=== PATIENT | female | born 1950 | race Caucasian/White ===

== ENCOUNTER 2018-03-05 18:29 | Inpatient (IN) | payer MEDICARE ==
--- NOTE | 2018-03-05 18:54 | ER Document Report ---
ED General <GUS TOUSSAINT - Last Filed: 03/05/18 21:56> - General Mode of Arrival: Medic Information source: Patient <ROBERT ARELLANO - Last Filed: 03/09/18 22:11> - General Stated Complaint: BLOOD PRESSURE ISSUES Time Seen by Provider: 03/05/18 18:42 Notes: Patient is a 67-year-old female with a history of hypertension, COPD, hyperlipidemia, dementia, stroke (2014), vascular dementia and stage IV renal disease presents to the emergency department accompanied by daughter complaining of altered mental status. Daughter at bedside states that when she spoke to the patient around 1700 today the patient was not making coherent sentences, further stating the patient appeared confused. She states the EMS arrived around 1800 the patient vomited and was still incoherent. Daughter also mentions the patient being diaphoretic. At bedside, daughter states the patient has returned to her normal mental status. Patient states that she believes she has had 2 syncopal episodes today and also complains of right elbow pain and right flank pain, stating her "right kidney hurts with coughing and movement." (ROBERT ARELLANO) - Related Data Allergies/Adverse Reactions: strawberry Allergy (Intermediate, Verified 03/06/18 22:23) Hives Penicillins Allergy (Verified 03/05/18 19:32) Past Medical History - General Information source: Patient, Relative - Social History Smoking Status: Current Every Day Smoker Cigarette use (# per day): No Chew tobacco use (# tins/day): No Smoking Education Provided: No Frequency of alcohol use: Former excessive drinker, quit in June 2017. Family History: Reviewed & Not Pertinent - Past Medical History Cardiac Medical History: Reports: Hx Hypertension, Other - Hyperlipidemia Pulmonary Medical History: Reports: Hx COPD Renal/ Medical History: Reports: Other - Stage IV renal disease Past Surgical History: Reports: Hx Tubal Ligation <ROBERT ARELLANO - Last Filed: 03/09/18 22:11> Review of Systems - Review of Systems Constitutional: See HPI, Diaphoresis EENT: No symptoms reported Cardiovascular: See HPI, Syncope Respiratory: No symptoms reported Gastrointestinal: See HPI, Vomiting Genitourinary: See HPI, Flank pain - right Female Genitourinary: No symptoms reported Musculoskeletal: No symptoms reported Skin: No symptoms reported Hematologic/Lymphatic: No symptoms reported Neurological/Psychological: See HPI, Confusion -: Yes All other systems reviewed and negative <ROBERT ARELLANO - Last Filed: 03/09/18 22:11> Physical Exam <GUS TOUSSAINT - Last Filed: 03/05/18 21:56> <ROBERT ARELLANO - Last Filed: 03/09/18 22:11> - Vital signs Vitals: Temp Resp Pulse Ox 98.6 F 18 98 03/05/18 18:38 03/05/18 18:38 03/05/18 18:38 - Notes Notes: GENERAL: Alert, interacts well. No acute distress. HEAD: Normocephalic, atraumatic. EYES: Pupils equal, round, and reactive to light. Extraocular movements intact. ENT: Oral mucosa moist, tongue midline. NECK: Full range of motion. Supple. Trachea midline. LUNGS: Clear to auscultation bilaterally, no wheezes, rales, or rhonchi. No respiratory distress. HEART: Regular rate and rhythm. No murmurs, gallops, or rubs. ABDOMEN: Soft, non-tender. Non-distended. Bowel sounds present in all 4 quadrants. EXTREMITIES: Moves all 4 extremities spontaneously. No edema, radial and dorsalis pedis pulses 2/4 bilaterally. No cyanosis. NEUROLOGICAL: Somewhat demented which is baseline. Normal speech. PSYCH: Normal affect, normal mood. SKIN: Warm, dry, normal turgor. 2 small bruises on the dorsal aspect of the right wrist, appears old. BACK: Right lumbar muscles tender to palpation. Nontender to palpation to the paraspinal muscles. (EILEENROBERT GUSMAN) Course - Laboratory Result Diagrams: 03/05/18 18:49 03/05/18 18:49 - Diagnostic Test Radiology reviewed: Image reviewed, Reports reviewed - Lungs are hyperexpanded with flattening of the diaphragms. There are chronic lung changes with nothing acute. - EKG Interpretation by In EKG shows normal: Sinus rhythm, Hellier, Intervals, QRS Complexes, ST-T Waves Rate: Normal - 65 Rhythm: NSR Voltage: Consistant with LVH When compared to previous EKG there are: Previous EKG unavailable <GUS TOUSSAINT - Last Filed: 03/05/18 21:56> - Laboratory Result Diagrams: 03/08/18 04:01 03/08/18 04:01 <ROBERT ARELLANO - Last Filed: 03/09/18 22:11> - Re-evaluation Re-evalutation: 03/05/18 21:22 Patient's temperature went up to 101.9 orally. (GUS TOUSSAINT) - Vital Signs Vital signs: Temp Pulse Resp BP Pulse Ox 98.9 F 77 16 148/78 H 95 03/08/18 11:00 03/08/18 08:42 03/08/18 08:42 03/08/18 09:00 03/08/18 09:01 - Laboratory Laboratory results interpreted by me: 03/05/18 03/05/18 03/05/18 18:49 18:49 20:27 RBC 3.47 L Hgb 10.7 L Hct 32.7 L Seg Neutrophils % 81.6 H Lymphocytes % 8.4 L BUN 30 H Creatinine 1.83 H Est GFR ( Amer) 33 L Est GFR (Non-Af Amer) 27 L Urine Protein 100 H Urine Ketones TRACE H Urine Blood SMALL H Ur Leukocyte Esterase LARGE H Discharge - Discharge Admitting Provider: Hospitalist Unit Admitted: Telemetry <GUS TOUSSAINT - Last Filed: 03/05/18 21:56> <ROBERT ARELLANO - Last Filed: 03/09/18 22:11> - Discharge Clinical Impression: Febrile illness, acute, Confusion Urinary tract infection Qualifiers: Urinary tract infection type: site unspecified Hematuria presence: without hematuria Qualified Code(s): N39.0 - Urinary tract infection, site not specified COPD (chronic obstructive pulmonary disease) Qualifiers: COPD type: unspecified COPD Qualified Code(s): J44.9 - Chronic obstructive pulmonary disease, unspecified Condition: Stable Disposition: ADMITTED INPATIENT Scribe Attestation: 03/05/18 19:58 I personally performed the services described in the documentation, reviewed and edited the documentation which was dictated to the scribe in my presence, and it accurately records my words and actions. (GUS TOUSSAINT)
[2018-03-05] MEDS ORDERED: NORMAL SALINE 1000 ML 1,000 ML IV ONE ×2 (18:55→18:56)
[2018-03-05 19:02] LABS: ABSOLUTE LYMPHOCYTES (AUTO) 0.8 10^3/uL (0.5-4.7); ABSOLUTE MONOCYTES (AUTO) 0.9 10^3/uL (0.1-1.4); ABSOLUTE NEUT (AUTO) 7.8 10^3/uL (1.7-8.2); BASOPHILS % (AUTO) 0.3 % (0-2); EOSINOPHILS % (AUTO) 0.5 % (0-6); HEMATOCRIT 32.7 % (36.0-47.0); HEMOGLOBIN 10.7 g/dL (12.0-15.5); LYMPHOCYTES % (AUTO) 8.4 % (13-45); MEAN CORPUSCULAR HGB CONC 32.8 g/dL (32.0-36.0); MEAN CORPUSCULAR VOLUME 94 fl (80-97); MONOCYTES % (AUTO) 9.2 % (3-13); PLATELET COUNT 171 10^3/uL (150-450); RED BLOOD COUNT 3.47 10^6/uL (3.72-5.28); RED CELL DISTRIBUTION WIDTH 12.9 % (11.5-14.0); SEGMENTED NEUTROPHILS % (AUTO) 81.6 % (42-78); TOTAL CELLS COUNTED % (AUTO) 100 %; WHITE BLOOD COUNT 9.5 10^3/uL (4.0-10.5)
--- NOTE | 2018-03-05 19:14 | RADIOLOGY REPORT (SQ) ---
EXAM DESCRIPTION: CHEST SINGLE VIEW COMPLETED DATE/TIME: 03/05/2018 7:04 pm REASON FOR STUDY: Cough, congestion, fever, altered mental status COMPARISON: None. EXAM PARAMETERS: NUMBER OF VIEWS: One view. TECHNIQUE: Single frontal radiographic view of the chest acquired. RADIATION DOSE: NA LIMITATIONS: None. FINDINGS: LUNGS AND PLEURA: The lungs are hyperexpanded with flattening of the diaphragms. There is no infiltrate or effusion. No mass is present. MEDIASTINUM AND HILAR STRUCTURES: No masses. Contour normal. HEART AND VASCULAR STRUCTURES: Heart normal in size. Normal vasculature. BONES: No acute findings. HARDWARE: None in the chest. OTHER: No other significant finding. IMPRESSION: Chronic lung changes with no acute cardiopulmonary disease. TECHNICAL DOCUMENTATION: JOB ID: [id number] [employer]- All Rights Reserved Reading location - IP/workstation name: [email or web address]
[2018-03-05 19:31] LABS: ALANINE AMINOTRANSFERASE 26 U/L (9-52); ALBUMIN 4.3 g/dL (3.5-5.0); ALKALINE PHOSPHATASE 96 U/L (38-126); ANION GAP 14 (5-19); ASPARTATE AMINO TRANSFERASE 28 U/L (14-36); BILIRUBIN,DIRECT 0.2 mg/dL (0.0-0.4); BILIRUBIN,TOTAL 0.2 mg/dL (0.2-1.3); BLOOD UREA NITROGEN 30 mg/dL (7-20); CALCIUM 9.5 mg/dL (8.4-10.2); CARBON DIOXIDE 22 mmol/L (22-30); CHLORIDE 105 mmol/L (98-107); CREATINE KINASE 129 U/L (30-135); GLUCOSE 104 mg/dL (75-110); POTASSIUM 4.5 mmol/L (3.6-5.0); SODIUM 140.7 mmol/L (137-145); TOTAL PROTEIN 7.2 g/dL (6.3-8.2)
[2018-03-05] MEDS ORDERED: ACETAMINOPHEN 325 MG TABLET PO ONE (20:34)
[2018-03-05 21:06] LABS: APPEARANCE,URINE SLIGHTLY-CLOUDY; BILIRUBIN,URINE NEGATIVE (NEGATIVE); COLOR,URINE YELLOW; GLUCOSE, URINE NEGATIVE (NEGATIVE); KETONES,URINE TRACE mg/dL (NEGATIVE); LEUKOCYTE ESTERASE,URINE LARGE (NEGATIVE); NITRITE,URINE NEGATIVE (NEGATIVE); PROTEIN,URINE 100 mg/dL (NEGATIVE); URINE SPECIFIC GRAVITY 1.015; UROBILINOGEN,URINE NEGATIVE mg/dL (<2.0)
[2018-03-05] MEDS ORDERED: LEVOFLOXACIN 750 MG/D5W RTU 750 MG/150 ML RTUPB IV ONE (21:21)
[2018-03-05] MEDS ORDERED: LACTULOSE SYRUP 20 GM/30 ML UDCUP PO ONE (21:49)
[2018-03-05] MEDS ORDERED: IPRATROPIUM/ALBUTEROL 0.5-2.5 MG/3 ML AMPUL NEB PRN (21:50)
[2018-03-05] MEDS ORDERED: MAG HYDROX/AL HYDROX/SIMETH SUSP 30 ML UDCUP PO PRN (21:50)
[2018-03-05] MEDS: FLUTICASONE NASAL SPRAY 50 MCG/SPRY 120 SPRAY/16 GM NASL SCH (23:12)
[2018-03-06] MEDS: IPRATROPIUM/ALBUTEROL 0.5-2.5 MG/3 ML AMPUL NEB SCH ×4 (01:31→20:18)
[2018-03-06] MEDS: ACETAMINOPHEN 325 MG TABLET PO PRN ×2 (01:46→17:19)
[2018-03-06] MEDS: NORMAL SALINE 1000 ML 1,000 ML IV SCH (02:35)
--- NOTE | 2018-03-06 05:01 | PDOC H&P ---
History of Present Illness Admission Date/PCP: 03/05/18 22:03 WALE BELTRAN DO Patient complains of: Uncontrolled hypertension History of Present Illness: DAVON SIM is a 67 year old female with a past medical history of vascular dementia, stage IV chronic kidney disease, COPD, chronic bronchitis and tobacco abuse. Patient presents with 6 hours of fatigue, exceptional confusion, diaphoresis and vomiting 1. EMS reports vomiting, confusion, uncontrolled hypertension and brought to the emergency room for evaluation where she is found to have a fever of 101.1 with baseline mental status. Her workup reveals urinary tract infection and bronchitis she started on empiric antibiotics and referred to the hospitalist for admission. Patient has a persistent belief that she had 2 syncopal episodes earlier in the day resulting in pain to her right elbow but without visible injury or reproducible pain. She is unaware of her home medication regiment. Past Medical History Cardiac Medical History: Reports: Hypertension, Other - Hyperlipidemia Pulmonary Medical History: Reports: Bronchitis, Chronic Obstructive Pulmonary Disease (COPD) Renal/ Medical History: Reports: End Stage Renal Disease, Other - Stage IV renal disease Psychiatric Medical History: Reports: Dementia, Tobacco Dependency Past Surgical History Past Surgical History: Reports: Tubal Ligation Social History Information Source: Relative, Emergency Med Personnel, [facility] Records Lives with: Alone Smoking Status: Current Every Day Smoker Frequency of Alcohol Use: None - Remote heavy use Hx Prescription Drug Abuse: No - Advance Directive Resuscitation Status: Full Code Family History Family History: Other - Unobtainable Parental Family History Reviewed: Yes - Unobtainable Children Family History Reviewed: Yes - Unobtainable Sibling(s) Family History Reviewed.: Yes - Unobtainable Medication/Allergy Allergies/Adverse Reactions: Penicillins Allergy (Verified 03/05/18 19:32) Review of Systems ROS unobtainable: Due to mental status - Secondary to dementia Physical Exam Vital Signs: Temp Pulse Resp BP Pulse Ox 98.4 F 73 17 156/72 H 96 03/06/18 02:16 03/06/18 02:45 03/06/18 02:16 03/06/18 02:16 03/06/18 02:16 Intake & Output 03/04/18 03/05/18 03/06/18 11:59 11:59 11:59 Weight 55.7 kg General appearance: PRESENT: cooperative, disheveled, mild distress, thin Head exam: PRESENT: atraumatic, normocephalic Eye exam: PRESENT: conjunctiva pink, EOMI, PERRLA. ABSENT: scleral icterus Ear exam: PRESENT: normal external ear exam Mouth exam: PRESENT: moist, tongue midline Neck exam: ABSENT: carotid bruit, JVD, lymphadenopathy, thyromegaly Respiratory exam: PRESENT: accessory muscle use, crackles, prolonged expiratory phas, symmetrical, tachypnea, wheezes Cardiovascular exam: PRESENT: RRR. ABSENT: diastolic murmur, rubs, systolic murmur Pulses: PRESENT: normal dorsalis pedis pul Vascular exam: PRESENT: normal capillary refill GI/Abdominal exam: PRESENT: normal bowel sounds, soft. ABSENT: distended, guarding, mass, organolmegaly, rebound, tenderness Rectal exam: PRESENT: deferred Extremities exam: PRESENT: full ROM. ABSENT: calf tenderness, clubbing, pedal edema Neurological exam: PRESENT: alert, awake, oriented to person, CN II-XII grossly intact. ABSENT: oriented to place, oriented to time Psychiatric exam: PRESENT: appropriate affect, normal mood. ABSENT: homicidal ideation, suicidal ideation Skin exam: PRESENT: dry, intact, warm. ABSENT: cyanosis, rash Results Impressions: Chest X-Ray 03/05/18 18:54 IMPRESSION: Chronic lung changes with no acute cardiopulmonary disease. Assessment & Plan - Diagnosis (1) Urinary tract infection Qualifiers: Urinary tract infection type: site unspecified Hematuria presence: without hematuria Qualified Code(s): N39.0 - Urinary tract infection, site not specified Is this a current diagnosis for this admission?: Yes Plan: Empiric antibiotics, IV fluid challenge, follow-up CBC and urine culture (2) Bronchitis Is this a current diagnosis for this admission?: Yes Plan: Empiric antibiotics, incentive spirometry and flutter valve. Follow-up CBC (3) Hypertensive urgency Is this a current diagnosis for this admission?: Yes Plan: MELVIN inhibitor and hydralazine as needed (4) COPD (chronic obstructive pulmonary disease) Qualifiers: COPD type: unspecified COPD Qualified Code(s): J44.9 - Chronic obstructive pulmonary disease, unspecified Is this a current diagnosis for this admission?: Yes Plan: Flutter valve and incentive spirometry. (5) Tobacco abuse Is this a current diagnosis for this admission?: Yes Plan: Tobacco Dependence patient received tobacco cessation counseling and offered nicotine replacement options (6) Dementia Is this a current diagnosis for this admission?: Yes Plan: Supportive care, discharge planning (7) Falls Is this a current diagnosis for this admission?: Yes Plan: Physical therapy evaluation - Time Time Spent: 50 to 70 Minutes - Inpatient Certification Medical Necessity: Need Close Monitoring Due to Risk of Patient Decompensation
[2018-03-06 05:33] LABS: ABSOLUTE EOSINOPHILS # (AUTO) 0.1 10^3/uL (0.0-0.6); ABSOLUTE NEUT (AUTO) 4.1 10^3/uL (1.7-8.2); MEAN CORPUSCULAR HEMOGLOBIN 31.1 pg (27.0-33.4); TOTAL CELLS COUNTED % (AUTO) 100 %
[2018-03-06] MEDS: HEPARIN SOD (PORCINE) 5,000 UNIT/ML 1 ML SYRINGE SUBCUT SCH ×3 (05:47→21:53)
[2018-03-06 05:57] LABS: ABSOLUTE BASOPHILS # (AUTO) 0.1 10^3/uL (0.0-0.2); ABSOLUTE LYMPHOCYTES (AUTO) 1.4 10^3/uL (0.5-4.7); BASOPHILS % (AUTO) 0.8 % (0-2); EOSINOPHILS % (AUTO) 1.1 % (0-6); HEMATOCRIT 26.1 % (36.0-47.0); HEMOGLOBIN 8.7 g/dL (12.0-15.5); LYMPHOCYTES % (AUTO) 20.8 % (13-45); MEAN CORPUSCULAR HGB CONC 33.3 g/dL (32.0-36.0); MEAN CORPUSCULAR VOLUME 93 fl (80-97); MONOCYTES % (AUTO) 15.3 % (3-13); PLATELET COUNT 123 10^3/uL (150-450); RED CELL DISTRIBUTION WIDTH 12.4 % (11.5-14.0); WHITE BLOOD COUNT 6.7 10^3/uL (4.0-10.5)
[2018-03-06 05:59] LABS: ANION GAP 12 (5-19); BLOOD UREA NITROGEN 25 mg/dL (7-20); CALCIUM 8.3 mg/dL (8.4-10.2); CARBON DIOXIDE 19 mmol/L (22-30); CHLORIDE 109 mmol/L (98-107); GLUCOSE 83 mg/dL (75-110); SODIUM 140.4 mmol/L (137-145)
[2018-03-06] MEDS: HYDRALAZINE HCL INJ/PF 20 MG/1 ML SDV IV PRN (06:48)
[2018-03-06] MEDS ORDERED: LORAZEPAM INJ 2 MG/1 ML VIAL ONE ×3 (07:29→07:55)
[2018-03-06] MEDS ORDERED: METOPROLOL TARTRATE PF/INJ 5 MG/5 ML SDV IV ONE (07:34)
[2018-03-06] MEDS ORDERED: HALOPERIDOL LACTATE INJ 5 MG/1 ML VIAL ONE (07:44)
--- NOTE | 2018-03-06 07:55 | EKG REPORT ---
SEVERITY:- ABNORMAL ECG - SINUS RHYTHM CONSIDER LEFT VENTRICULAR HYPERTROPHY : Confirmed by: Alonso Bell MD 06-Mar-2018 07:54:52
[2018-03-06 08:05] LABS: ARTERIAL BLOOD BASE EXCESS -13.1 mmol/L; ARTERIAL BLOOD HCO3 12.2 mmol/L (20-26); ARTERIAL BLOOD O2 SATURATION 97.7 % (94-98); ARTERIAL BLOOD PCO2 26.6 mmHg (35-45); ARTERIAL BLOOD PH 7.28 (7.35-7.45); ARTERIAL BLOOD PO2 113.5 mmHg (80-100)
[2018-03-06 08:09] LABS: ARTERIAL BLOOD FIO2 2L
[2018-03-06] MEDS ORDERED: ZIPRASIDONE MESYLATE INJ/PF 20 MG SDV IM ONE (09:00)
--- NOTE | 2018-03-06 09:44 | Progress Note ---
Provider Note Provider Note: Called to a rapid response Patient had a witnessed seizure. When I arrived the patient was very agitated and not interactive. Continually saying her rosary. Skin was flushed and wet. Systolic blood pressure was 186 with a heart rate of 85, I gave 5 mg of IV Lopressor Her exam showed regular heart without murmur, her lungs were clear with some posterior pharyngeal rattles, abdomen was soft and nontender, extremities were pink with good cap refill Temperature was 97.1, oxygen saturations 94% on room air Glucose is 135 I gave her 2 mg of Ativan without noticeable effect, 5 mg of Haldol with brief improvement and then return of agitation, 2 more milligrams of Ativan without significant effect, and then 10 mg of Geodon which put her to sleep. ABG shows a mixed metabolic and respiratory acidosis. CBC was unremarkable her hemoglobin is down to 8.7 from 10.7 last night which is probably delusional. BUN and creatinine are 25 and 1.63 down from 30 and 1.83 last night. Impression 1: Apparent new onset seizure. No record of prior epileptic activity. Home medications are unknown. Etiology unknown at this point. Moved to the ICU. While she is sedate I will see if we can get an MRI. 2: Mixed metabolic and respiratory acidosis presumably due to agitation and seizure 3: Urinary tract infection with sepsis 4: Acute on chronic encephalopathy. Unknown baseline. She was recorded to have been talking on admission. Levaquin can occasionally cause neuropsychiatric symptoms so I will change her over to Rocephin. 5: Uncontrolled hypertension. Again, unknown home medications. we will treat with as needed medications 6: Acute renal failure. Continue hydration with normal saline Total time spent at the bedside both on the floor and in the ICU 1 hour 15 minutes
[2018-03-06] MEDS ORDERED: LEVOFLOXACIN 500 MG/D5W RTU 500 MG/100 ML RTUPB IV SCH (10:00)
[2018-03-06] MEDS ORDERED: (PENDING PHARMACY ID) (Donepezil Hcl [Aricept] 10 MG) PO SCH (10:00)
[2018-03-06] MEDS ORDERED: CEFTRIAXONE 1 GM/D5W RTU 1 GM/50 ML RTUPB IV SCH (10:00)
[2018-03-06] MEDS: DOCUSATE SODIUM 100 MG CAPSULE PO SCH ×2 (10:02→17:18)
[2018-03-06] MEDS: FLUTICASONE NASAL SPRAY 50 MCG/SPRY 120 SPRAY/16 GM NASL SCH ×2 (10:02→21:54)
[2018-03-06] MEDS: DONEPEZIL HCL 5 MG TABLET PO SCH (10:02)
[2018-03-06] MEDS: FLUOXETINE HCL 20 MG CAPSULE PO SCH (10:02)
--- NOTE | 2018-03-06 11:42 | RADIOLOGY REPORT (SQ) ---
EXAM DESCRIPTION: MRI HEAD WITHOUT COMPLETED DATE/TIME: 03/06/2018 11:17 am REASON FOR STUDY: New onset seizure COMPARISON: None. TECHNIQUE: Multiplanar imaging includes non-contrasted T1, T2, FLAIR, and diffusion with ADC map seq uences. Images stored on PACS. LIMITATIONS: None. FINDINGS: ANATOMY: No anomalies. Normal vascular flow voids. Pituitary fossa normal. CSF SPACES: Atrophy induced prominence of ventricles and CSF spaces. CEREBRUM: High signal intensity lesions scattered throughout the white matter on FLAIR imaging with d istribution suggesting micro-vascular ischemic changes. No evidence of hemorrhage, mass, or extraaxi al fluid collection. POSTERIOR FOSSA: No signal alteration. No hemorrhage. No edema, masses or mass effect. Internal lori tory canals, cerebello-pontine angles, mastoids normal. DIFFUSION IMAGING: Negative for acute or sub-acute infarction. ORBITS: No masses. Globes normal. PARANASAL SINUSES: Mucosal thickening in the sphenoid sinuses. OTHER: No other significant finding. IMPRESSION: ATROPHY AND CHRONIC MICRO-VASCULAR ISCHEMIC CHANGES. OTHERWISE NORMAL MRI OF THE BRAIN W ITHOUT INTRAVENOUS GADOLINIUM CONTRAST. EVIDENCE OF ACUTE STROKE: NO. TECHNICAL DOCUMENTATION: JOB ID: [id number] [employer]- All Rights Reserved Reading location - IP/workstation name: Unknown
[2018-03-06] MEDS ORDERED: LOSARTAN POTASSIUM 50 MG TABLET PO SCH ×2 (13:30→18:00)
[2018-03-06] MEDS ORDERED: CLONIDINE HCL 0.1 MG TABLET PO SCH (13:30)
[2018-03-06] MEDS ORDERED: LORAZEPAM INJ 2 MG/1 ML VIAL IV PRN (13:33)
[2018-03-06] MEDS: CEFTRIAXONE SODIUM 1,000 MG in DEXTROSE 5%-WATER 50 ML IV SCH (14:02)
[2018-03-06] MEDS: NEBIVOLOL HCL 10 MG TABLET PO SCH (17:20)
[2018-03-06 17:46] LABS: ARTERIAL BLOOD BASE EXCESS -4.9 mmol/L; ARTERIAL BLOOD H2CO3 1.08 mmol/L (1.05-1.35); ARTERIAL BLOOD O2 SATURATION 96.4 % (94-98); ARTERIAL BLOOD PH 7.36 (7.35-7.45); ARTERIAL BLOOD PO2 86.7 mmHg (80-100); ARTERIAL BLOOD TOTAL CO2 21.1 mmol/L (21-25)
[2018-03-06 17:47] LABS: ABSOLUTE LYMPHOCYTES (AUTO) 1.3 10^3/uL (0.5-4.7); ABSOLUTE MONOCYTES (AUTO) 0.9 10^3/uL (0.1-1.4); ABSOLUTE NEUT (AUTO) 4.9 10^3/uL (1.7-8.2); BASOPHILS % (AUTO) 0.4 % (0-2); EOSINOPHILS % (AUTO) 0.2 % (0-6); HEMATOCRIT 27.4 % (36.0-47.0); HEMOGLOBIN 9.1 g/dL (12.0-15.5); LYMPHOCYTES % (AUTO) 18.2 % (13-45); MEAN CORPUSCULAR HEMOGLOBIN 31.2 pg (27.0-33.4); MEAN CORPUSCULAR HGB CONC 33.1 g/dL (32.0-36.0); MEAN CORPUSCULAR VOLUME 94 fl (80-97); MONOCYTES % (AUTO) 13.1 % (3-13); PLATELET COUNT 134 10^3/uL (150-450); RED CELL DISTRIBUTION WIDTH 12.6 % (11.5-14.0); SEGMENTED NEUTROPHILS % (AUTO) 68.1 % (42-78); TOTAL CELLS COUNTED % (AUTO) 100 %; WHITE BLOOD COUNT 7.1 10^3/uL (4.0-10.5)
[2018-03-06 17:50] LABS: ARTERIAL BLOOD FIO2 2L
[2018-03-06] MEDS ORDERED: LEVOFLOXACIN 250 MG/D5W RTU 250 MG/50 ML RTUPB IV SCH (18:00)
[2018-03-06 18:05] LABS: ALANINE AMINOTRANSFERASE 32 U/L (9-52); ALBUMIN 3.3 g/dL (3.5-5.0); ALKALINE PHOSPHATASE 71 U/L (38-126); ANION GAP 11 (5-19); ASPARTATE AMINO TRANSFERASE 22 U/L (14-36); BILIRUBIN,DIRECT 0.1 mg/dL (0.0-0.4); BILIRUBIN,TOTAL 0.1 mg/dL (0.2-1.3); BLOOD UREA NITROGEN 20 mg/dL (7-20); CALCIUM 8.9 mg/dL (8.4-10.2); CARBON DIOXIDE 20 mmol/L (22-30); CHLORIDE 110 mmol/L (98-107); GLUCOSE 71 mg/dL (75-110); PHOSPHORUS 3.1 mg/dL (2.5-4.5); SODIUM 140.7 mmol/L (137-145); TOTAL PROTEIN 5.6 g/dL (6.3-8.2)
[2018-03-06] MEDS: MIRTAZAPINE 15 MG TABLET PO SCH (21:53)
[2018-03-07] MEDS: NORMAL SALINE 1000 ML 1,000 ML IV SCH
[2018-03-07] MEDS: HYDRALAZINE HCL INJ/PF 20 MG/1 ML SDV IV PRN ×2 (00:23→18:09)
[2018-03-07] MEDS: IPRATROPIUM/ALBUTEROL 0.5-2.5 MG/3 ML AMPUL NEB SCH ×4 (01:13→20:26)
[2018-03-07 04:10] LABS: ABSOLUTE EOSINOPHILS # (AUTO) 0.1 10^3/uL (0.0-0.6); ABSOLUTE LYMPHOCYTES (AUTO) 1.3 10^3/uL (0.5-4.7); ABSOLUTE NEUT (AUTO) 4.5 10^3/uL (1.7-8.2); BASOPHILS % (AUTO) 0.5 % (0-2); EOSINOPHILS % (AUTO) 0.9 % (0-6); HEMATOCRIT 27.2 % (36.0-47.0); HEMOGLOBIN 8.9 g/dL (12.0-15.5); LYMPHOCYTES % (AUTO) 18.9 % (13-45); MEAN CORPUSCULAR HEMOGLOBIN 30.9 pg (27.0-33.4); MEAN CORPUSCULAR HGB CONC 32.8 g/dL (32.0-36.0); MEAN CORPUSCULAR VOLUME 94 fl (80-97); MONOCYTES % (AUTO) 14.6 % (3-13); PLATELET COUNT 115 10^3/uL (150-450); RED BLOOD COUNT 2.89 10^6/uL (3.72-5.28); RED CELL DISTRIBUTION WIDTH 12.6 % (11.5-14.0); SEGMENTED NEUTROPHILS % (AUTO) 65.1 % (42-78); TOTAL CELLS COUNTED % (AUTO) 100 %; WHITE BLOOD COUNT 6.9 10^3/uL (4.0-10.5)
[2018-03-07] MEDS: HEPARIN SOD (PORCINE) 5,000 UNIT/ML 1 ML SYRINGE SUBCUT SCH ×3 (05:04→22:10)
[2018-03-07 08:51] LABS: ALANINE AMINOTRANSFERASE 24 U/L (9-52); ALKALINE PHOSPHATASE 65 U/L (38-126); ANION GAP 13 (5-19); ASPARTATE AMINO TRANSFERASE 21 U/L (14-36); BILIRUBIN,DIRECT 0.2 mg/dL (0.0-0.4); BILIRUBIN,TOTAL 0.2 mg/dL (0.2-1.3); BLOOD UREA NITROGEN 21 mg/dL (7-20); CALCIUM 8.9 mg/dL (8.4-10.2); CARBON DIOXIDE 17 mmol/L (22-30); CHLORIDE 113 mmol/L (98-107); GLUCOSE 82 mg/dL (75-110); POTASSIUM 3.6 mmol/L (3.6-5.0); SODIUM 142.9 mmol/L (137-145); TOTAL PROTEIN 5.5 g/dL (6.3-8.2)
[2018-03-07] MEDS: DONEPEZIL HCL 5 MG TABLET PO SCH (09:42)
[2018-03-07] MEDS: DOCUSATE SODIUM 100 MG CAPSULE PO SCH ×2 (09:42→17:09)
[2018-03-07] MEDS: FOLIC ACID 1 MG TABLET PO SCH (09:42)
[2018-03-07] MEDS: FLUOXETINE HCL 20 MG CAPSULE PO SCH (09:43)
[2018-03-07] MEDS: THIAMINE HCL 100 MG TABLET PO SCH (09:43)
[2018-03-07] MEDS: FLUTICASONE NASAL SPRAY 50 MCG/SPRY 120 SPRAY/16 GM NASL SCH ×2 (11:18→22:11)
[2018-03-07] MEDS: CEFTRIAXONE SODIUM 1,000 MG in DEXTROSE 5%-WATER 50 ML IV SCH (11:57)
--- NOTE | 2018-03-07 15:51 | PDOC PROGRESS REPORT ---
Subjective Progress Note for:: 03/07/18 Subjective:: She has had a remarkable turnaround over night. She is awake and conversational. Voices no complaints. Has no recollection of yesterday at all Reason For Visit: COPD EXACERBATION ACUTE BRONCHITIS, UTI Physical Exam Vital Signs: Temp Pulse Resp BP Pulse Ox 99.7 F 79 16 175/79 H 95 03/07/18 06:00 03/07/18 13:34 03/07/18 13:34 03/07/18 14:59 03/07/18 15:00 Intake & Output 03/06/18 03/07/18 03/08/18 05:59 05:59 05:59 Intake Total 800 1678 Output Total 195 575 Balance 675 -372 -575 Weight 122 lb 12.76 oz 122 lb 2.177 oz General appearance: PRESENT: no acute distress. ABSENT: well-nourished Respiratory exam: PRESENT: clear to auscultation derrek Cardiovascular exam: PRESENT: RRR GI/Abdominal exam: PRESENT: soft Extremities exam: ABSENT: +1 edema Musculoskeletal exam: PRESENT: normal inspection Neurological exam: PRESENT: alert Psychiatric exam: PRESENT: appropriate affect Skin exam: PRESENT: warm Results Laboratory Results: 03/07/18 03:50 03/07/18 03:50 03/06/18 03/06/18 03/06/18 17:00 17:10 17:10 WBC 7.1 RBC 2.90 L Hgb 9.1 L Hct 27.4 L MCV 94 MCH 31.2 MCHC 33.1 RDW 12.6 Plt Count 134 L Seg Neutrophils % 68.1 Lymphocytes % 18.2 Monocytes % 13.1 H Eosinophils % 0.2 Basophils % 0.4 Absolute Neutrophils 4.9 Absolute Lymphocytes 1.3 Absolute Monocytes 0.9 Absolute Eosinophils 0.0 Absolute Basophils 0.0 Carbonic Acid 1.08 HCO3/H2CO3 Ratio 18:1 ABG pH 7.36 ABG pCO2 36.0 ABG pO2 86.7 ABG HCO3 20.0 ABG O2 Saturation 96.4 ABG Base Excess -4.9 FiO2 2L Sodium 140.7 Potassium 4.0 Chloride 110 H Carbon Dioxide 20 L Anion Gap 11 BUN 20 Creatinine 1.73 H Est GFR ( Amer) 35 L Est GFR (Non-Af Amer) 29 L Glucose 71 L Lactic Acid Calcium 8.9 Phosphorus 3.1 Magnesium 1.8 Total Bilirubin 0.1 L AST 22 ALT 32 Alkaline Phosphatase 71 Total Protein 5.6 L Albumin 3.3 L 03/06/18 03/07/18 03/07/18 17:10 03:50 03:50 WBC 6.9 RBC 2.89 L Hgb 8.9 L Hct 27.2 L MCV 94 MCH 30.9 MCHC 32.8 RDW 12.6 Plt Count 115 L Seg Neutrophils % 65.1 Lymphocytes % 18.9 Monocytes % 14.6 H Eosinophils % 0.9 Basophils % 0.5 Absolute Neutrophils 4.5 Absolute Lymphocytes 1.3 Absolute Monocytes 1.0 Absolute Eosinophils 0.1 Absolute Basophils 0.0 Carbonic Acid HCO3/H2CO3 Ratio ABG pH ABG pCO2 ABG pO2 ABG HCO3 ABG O2 Saturation ABG Base Excess FiO2 Sodium 142.9 Potassium 3.6 Chloride 113 H Carbon Dioxide 17 L Anion Gap 13 BUN 21 H Creatinine 1.75 H Est GFR ( Amer) 35 L Est GFR (Non-Af Amer) 29 L Glucose 82 Lactic Acid 0.6 L Calcium 8.9 Phosphorus Magnesium 1.7 Total Bilirubin 0.2 AST 21 ALT 24 Alkaline Phosphatase 65 Total Protein 5.5 L Albumin 3.0 L Impressions: Chest X-Ray 03/05/18 18:54 IMPRESSION: Chronic lung changes with no acute cardiopulmonary disease. Head MRI 03/06/18 00:00 IMPRESSION: ATROPHY AND CHRONIC MICRO-VASCULAR ISCHEMIC CHANGES. OTHERWISE NORMAL MRI OF THE BRAIN WITHOUT INTRAVENOUS GADOLINIUM CONTRAST. EVIDENCE OF ACUTE STROKE: NO. Assessment & Plan - Diagnosis (1) Acute encephalopathy Is this a current diagnosis for this admission?: Yes Plan: Resolved overnight. Still unclear etiology. Hypertensive encephalopathy would be my suspicion. We will move her back to the floor (2) Sepsis Is this a current diagnosis for this admission?: Yes Plan: Cultures were nondiagnostic. Continue Rocephin (3) ARF (acute renal failure) Is this a current diagnosis for this admission?: Yes Plan: Continue rehydration (4) COPD (chronic obstructive pulmonary disease) Qualifiers: COPD type: unspecified COPD Qualified Code(s): J44.9 - Chronic obstructive pulmonary disease, unspecified Is this a current diagnosis for this admission?: Yes Plan: Stable continue present management (5) Dementia Is this a current diagnosis for this admission?: Yes Plan: Continue home medications (6) Hypertensive urgency Is this a current diagnosis for this admission?: Yes Plan: Still not controlled. Increase medications. (7) Tobacco abuse Is this a current diagnosis for this admission?: Yes Plan: Nicotine replacement (8) Urinary tract infection Qualifiers: Urinary tract infection type: site unspecified Hematuria presence: without hematuria Qualified Code(s): N39.0 - Urinary tract infection, site not specified Is this a current diagnosis for this admission?: Yes Plan: Continue Rocephin. Cultures were nondiagnostic.
[2018-03-07] MEDS ORDERED: AMLODIPINE BESYLATE 5 MG TABLET PO ONE (16:30)
[2018-03-07] MEDS: NEBIVOLOL HCL 10 MG TABLET PO SCH (17:09)
[2018-03-07] MEDS: POTASSI CL 20 MEQ/1/2NS 1L 20 MEQ/1,000 ML RTUINJ IV PRN (17:10)
[2018-03-07] MEDS: LOSARTAN POTASSIUM 50 MG TABLET PO SCH (22:07)
[2018-03-07] MEDS: MIRTAZAPINE 15 MG TABLET PO SCH (22:09)
[2018-03-08] MEDS: IPRATROPIUM/ALBUTEROL 0.5-2.5 MG/3 ML AMPUL NEB SCH ×2 (02:38→08:40)
[2018-03-08] MEDS: POTASSI CL 20 MEQ/1/2NS 1L 20 MEQ/1,000 ML RTUINJ IV PRN (02:49)
[2018-03-08 04:10] LABS: ABSOLUTE EOSINOPHILS # (AUTO) 0.2 10^3/uL (0.0-0.6); ABSOLUTE LYMPHOCYTES (AUTO) 1.5 10^3/uL (0.5-4.7); ABSOLUTE MONOCYTES (AUTO) 1.2 10^3/uL (0.1-1.4); ABSOLUTE NEUT (AUTO) 5.3 10^3/uL (1.7-8.2); BASOPHILS % (AUTO) 0.5 % (0-2); HEMATOCRIT 29.6 % (36.0-47.0); HEMOGLOBIN 9.7 g/dL (12.0-15.5); LYMPHOCYTES % (AUTO) 17.9 % (13-45); MEAN CORPUSCULAR HEMOGLOBIN 30.8 pg (27.0-33.4); MEAN CORPUSCULAR HGB CONC 32.8 g/dL (32.0-36.0); MEAN CORPUSCULAR VOLUME 94 fl (80-97); MONOCYTES % (AUTO) 15.2 % (3-13); PLATELET COUNT 120 10^3/uL (150-450); RED BLOOD COUNT 3.15 10^6/uL (3.72-5.28); SEGMENTED NEUTROPHILS % (AUTO) 64.4 % (42-78); TOTAL CELLS COUNTED % (AUTO) 100 %; WHITE BLOOD COUNT 8.2 10^3/uL (4.0-10.5)
[2018-03-08 04:29] LABS: ALBUMIN 3.4 g/dL (3.5-5.0); ANION GAP 12 (5-19); BLOOD UREA NITROGEN 20 mg/dL (7-20); CALCIUM 9.1 mg/dL (8.4-10.2); CARBON DIOXIDE 19 mmol/L (22-30); CHLORIDE 112 mmol/L (98-107); GLUCOSE 104 mg/dL (75-110); PHOSPHORUS 3.1 mg/dL (2.5-4.5); POTASSIUM 3.7 mmol/L (3.6-5.0); SODIUM 143.2 mmol/L (137-145)
[2018-03-08] MEDS: HYDRALAZINE HCL INJ/PF 20 MG/1 ML SDV IV PRN (05:16)
[2018-03-08] MEDS: HEPARIN SOD (PORCINE) 5,000 UNIT/ML 1 ML SYRINGE SUBCUT SCH (05:17)
[2018-03-08] MEDS: DOCUSATE SODIUM 100 MG CAPSULE PO SCH (09:35)
[2018-03-08] MEDS: DONEPEZIL HCL 5 MG TABLET PO SCH (09:37)
[2018-03-08] MEDS: THIAMINE HCL 100 MG TABLET PO SCH (09:37)
[2018-03-08] MEDS: FOLIC ACID 1 MG TABLET PO SCH (09:37)
[2018-03-08] MEDS: FLUOXETINE HCL 20 MG CAPSULE PO SCH (09:38)
[2018-03-08] MEDS: LOSARTAN POTASSIUM 50 MG TABLET PO SCH (09:39)
[2018-03-08] MEDS: FLUTICASONE NASAL SPRAY 50 MCG/SPRY 120 SPRAY/16 GM NASL SCH (09:40)
[2018-03-08] MEDS ORDERED: AMLODIPINE BESYLATE 5 MG TABLET PO SCH (10:00)
[2018-03-08 10:38] VITALS: BP 148/78
[2018-03-08] MEDS: CEFTRIAXONE SODIUM 1,000 MG in DEXTROSE 5%-WATER 50 ML IV SCH (12:09)
--- NOTE | 2018-03-08 15:28 | PDOC DISCHARGE SUMMARY ---
General - Admit/Disc Date/PCP Admission Date/Primary Care Provider: 03/05/18 22:03 WALE BELTRAN, Discharge Date: 03/08/18 - Discharge Diagnosis (1) Acute encephalopathy Is this a current diagnosis for this admission?: Yes Summary: Resolved. Unclear etiology. MRI was negative, there is no indication of toxic overdose. It lasted about 24 hours. Probably hypertensive encephalopathy, though a neuropsychiatric reaction to Levaquin is also possible. (2) ARF (acute renal failure) Is this a current diagnosis for this admission?: Yes (3) COPD (chronic obstructive pulmonary disease) Is this a current diagnosis for this admission?: Yes Summary: Stable. Home medications continued (4) Dementia Is this a current diagnosis for this admission?: Yes Summary: Stable. Home medications continued. (5) Hypertensive urgency Is this a current diagnosis for this admission?: Yes Summary: Antihypertensives were adjusted this admission. (6) Tobacco abuse Is this a current diagnosis for this admission?: Yes Summary: Cessation was strongly encouraged, though she is in the pre-contemplative phase (7) Urinary tract infection Is this a current diagnosis for this admission?: Yes Summary: Treated initially with Levaquin. When she had her acute agitated episode that was changed over to Rocephin. Subsequently I transitioned her to Vantin and she will be discharged on 3 more days. - Additional Information Resuscitation Status: Full Code Discharge Diet: Cardiac Discharge Activity: Activity As Tolerated Prescriptions: Amlodipine Besylate [Norvasc 5 mg Tablet] 5 mg PO DAILY #30 tablet Cefpodoxime Proxetil [Vantin 200 mg Tablet] 1 tab PO Q12 #6 tab Clonidine [Catapres-Tts 3 (0.3 mg/24 Hr) Transderm Patch] 1 each TD Fr@1500 #4 patch.tdwk Losartan Potassium [Cozaar 100 mg Tablet] 100 mg PO DAILY #30 tablet Home Medications: Atorvastatin Calcium [Lipitor 40 mg Tablet] 40 mg PO DAILY 03/06/18 Cholecalciferol (Vitamin D3) [Vitamin D3 2000 unit Tablet] 2,000 unit PO DAILY 03/06/18 Donepezil HCl [Aricept] 10 mg PO QHS 03/06/18 Fluoxetine HCl [Prozac 20 mg Capsule] 60 mg PO DAILY 03/06/18 Fluticasone Propionate [Flonase Nasal [place] 50 Mcg/[place] 16 gm] 2 spray NASL DAILY 03/06/18 Folic Acid [Folvite 1 mg Tablet] 1 mg PO DAILY 03/06/18 Magnesium Oxide [Magnesium] 800 mg PO DAILY 03/06/18 Mirtazapine [Remeron] 30 mg PO QHS 03/06/18 Montelukast Sodium [Singulair 10 mg Tablet] 10 mg PO DAILY 03/06/18 Multivitamin/Iron/Folic Acid [Centrum Adults Tablet] 1 each PO DAILY 03/06/18 Naltrexone 50 50 mg PO DAILY 03/06/18 Nebivolol HCl [Bystolic 10 mg Tablet] 10 mg PO DAILY 03/06/18 Thiamine HCl [Thiamine 100 mg Tablet] 100 mg PO DAILY 03/06/18 Vitamin B Complex [B Complex] 1 cap PO DAILY 03/06/18 Amlodipine Besylate [Norvasc 5 mg Tablet] 5 mg PO DAILY #30 tablet 03/08/18 Cefpodoxime Proxetil [Vantin 200 mg Tablet] 1 tab PO Q12 #6 tab 03/08/18 Clonidine [Catapres-Tts 3 (0.3 mg/24 Hr) Transderm Patch] 1 each TD Fr@1500 #4 patch.tdwk 03/08/18 Losartan Potassium [Cozaar 100 mg Tablet] 100 mg PO DAILY #30 tablet 03/08/18 History of Present Illness Patient complains of: Uncontrolled hypertension History of Present Illness: DAVON SIM is a 67 year old female with a past medical history of vascular dementia, stage IV chronic kidney disease, COPD, chronic bronchitis and tobacco abuse. Patient presents with 6 hours of fatigue, exceptional confusion, diaphoresis and vomiting 1. EMS reports vomiting, confusion, uncontrolled hypertension and brought to the emergency room for evaluation where she is found to have a fever of 101.1 with baseline mental status. Her workup reveals urinary tract infection and bronchitis she started on empiric antibiotics and referred to the hospitalist for admission. Patient has a persistent belief that she had 2 syncopal episodes earlier in the day resulting in pain to her right elbow but without visible injury or reproducible pain. She is unaware of her home medication regimen. Hospital Course Hospital Course: She was empirically started on Levaquin and IV fluids. About 3 hours after admission she became acutely agitated, had to be physically restrained, and then sedated. She was transferred to the ICU for closer observation. Antihypertensives were titrated up. Later that afternoon she woke up and appeared to be reasonably well oriented. The following morning she was back to baseline which has some component of dementia. I had her evaluated by physical therapy, staff is been walking with her around the unit, and she is anxious to go home. Physical Exam Vital Signs: Temp Pulse Resp BP Pulse Ox 98.9 F 77 16 148/78 H 95 03/08/18 11:00 03/08/18 08:42 03/08/18 08:42 03/08/18 09:00 03/08/18 09:01 Intake & Output 03/07/18 03/08/18 03/09/18 05:59 05:59 05:59 Intake Total 1678 1646 Output Total 6963 9098 524 Balance -277 -334 -335 Weight 122 lb 2.177 oz 121 lb 0.54 oz General appearance: PRESENT: no acute distress. ABSENT: well-nourished Respiratory exam: PRESENT: clear to auscultation derrek Cardiovascular exam: PRESENT: RRR GI/Abdominal exam: PRESENT: soft Neurological exam: PRESENT: alert, oriented to person, oriented to place, oriented to time, oriented to situation, other - She has some short-term memory issues Psychiatric exam: PRESENT: appropriate affect Skin exam: PRESENT: dry, warm Results Laboratory Results: 03/08/18 04:01 03/08/18 04:01 03/08/18 03/08/18 04:01 04:01 WBC 8.2 RBC 3.15 L Hgb 9.7 L Hct 29.6 L MCV 94 MCH 30.8 MCHC 32.8 RDW 13.0 Plt Count 120 L Seg Neutrophils % 64.4 Lymphocytes % 17.9 Monocytes % 15.2 H Eosinophils % 2.0 Basophils % 0.5 Absolute Neutrophils 5.3 Absolute Lymphocytes 1.5 Absolute Monocytes 1.2 Absolute Eosinophils 0.2 Absolute Basophils 0.0 Sodium 143.2 Potassium 3.7 Chloride 112 H Carbon Dioxide 19 L Anion Gap 12 BUN 20 Creatinine 1.69 H Est GFR ( Amer) 36 L Est GFR (Non-Af Amer) 30 L Glucose 104 Calcium 9.1 Phosphorus 3.1 Magnesium 1.4 L Albumin 3.4 L Impressions: Chest X-Ray 03/05/18 18:54 IMPRESSION: Chronic lung changes with no acute cardiopulmonary disease. Head MRI 03/06/18 00:00 IMPRESSION: ATROPHY AND CHRONIC MICRO-VASCULAR ISCHEMIC CHANGES. OTHERWISE NORMAL MRI OF THE BRAIN WITHOUT INTRAVENOUS GADOLINIUM CONTRAST. EVIDENCE OF ACUTE STROKE: NO. Qualifiers - * PATIENT BEING DISCHARGED WITH ANY OF THE FOLLOWING DIAGNOSIS: No
[2018-03-13] MEDS ORDERED: CLONIDINE 0.3 MG/24 HR PATCH.TDWK TD SCH (15:00)
== END 2018-03-08 12:50 | disposition home or self-care (01) | DRG 872 ==
LOC: ER 18:29 → EH 22:03 → 4S 03-06 02:15 → ICU 03-06 08:17
PROVIDERS: ADMIT Internal Medicine; ATTEND Internal Medicine
PROC: 3E0F73Z Introduction of Anti-inflammatory into Respiratory Tract, Via Natural or Artificial Opening (ICD-10-PCS; principal; 2018-03-05)
DX: A41.9 Sepsis, unspecified organism (principal); I67.4 Hypertensive encephalopathy; N17.9 Acute kidney failure, unspecified; N39.0 Urinary tract infection, site not specified; N18.4 Chronic kidney disease, stage 4 (severe); F01.51 Vascular dementia, unspecified severity, with behavioral disturbance; J44.0 Chronic obstructive pulmonary disease with (acute) lower respiratory infection; I12.9 Hypertensive chronic kidney disease with stage 1 through stage 4 chronic kidney disease, or unspecified chronic kidney disease; J20.9 Acute bronchitis, unspecified; F03.90 Unspecified dementia, unspecified severity, without behavioral disturbance, psychotic disturbance, mood disturbance, and anxiety; I16.0 Hypertensive urgency; F17.210 Nicotine dependence, cigarettes, uncomplicated; F01.50 Vascular dementia, unspecified severity, without behavioral disturbance, psychotic disturbance, mood disturbance, and anxiety; E78.00 Pure hypercholesterolemia, unspecified; R56.9 Unspecified convulsions; Z60.2 Problems related to living alone; Z79.899 Other long term (current) drug therapy; Z88.0 Allergy status to penicillin; Z86.73 Personal history of transient ischemic attack (TIA), and cerebral infarction without residual deficits; Z91.018 Allergy to other foods; Z78.1 Physical restraint status; Z91.81 History of falling
CPT/HCPCS: 36415; 70551; 71045; 80048; 80053; 80069; 81001; 82550; 82803; 82962; 83605; 83735; 84100; 84443; 84484; 85025; 87040; 87086; 93005; 93010; 94640; 94667; 94668; 96360; 99285; G8978-GP; G8979-GP; J0360; J0696; J1630; J1644; J1956; J2060; J3480; J3486; J3490; J7030; J7620